=== PATIENT | male | born 1995 | race Caucasian/White ===

== ENCOUNTER 2016-09-26 09:51 | Emergency (ER) | payer OTHER ==
[2016-09-26 09:57] VITALS: BP 140/95
--- NOTE | 2016-09-26 11:04 | UC ---
Ear Complaint HPI - HPI Summary HPI Summary: ONSET OF LEFT EAR PAIN, DECREASED HEARING AND DRAINAGE YESTERDAY. NO FEVER. 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 WILL BE STARTING IT TODAY. - History of Current Complaint Chief Complaint: UCEar Stated Complaint: EAR PAIN Time Seen by Provider: 09/26/16 10:58 Hx Obtained From: Patient Onset/Duration: Sudden Onset, Lasting Hours, Still Present Severity Initially: Moderate Severity Currently: Moderate Pain Intensity: 10 - STATES 10/10 BUT SITTING IN EXAM ROOM IN NO DISTRESS Pain Scale Used: 0-10 Numeric Aggravating Factors: Nothing Alleviating Factors: Nothing Associated Signs/Symptoms: Positive: Discharge, Hearing Loss. Negative: Trauma to Ear - Allergies/Home Medications Allergies/Adverse Reactions: Allergies Allergy/AdvReac Type Severity Reaction Status Date / Time No Known Allergies Allergy Verified 02/19/16 13:37 PMH/Surg Hx/FS Hx/Imm Hx Previously Healthy: Yes Other History Of: Negative For: HIV, Hepatitis B, Hepatitis C, Anticoagulant Therapy - Surgical History Surgical History: Yes Surgery Procedure, Year, and Place: ganglion cyst removed right wrist - Family History Known Family History: Positive: Unknown, Hypertension, Diabetes, Other - Mother and her sister has Leiden Factor V. Patient hasn't been tested Negative: Cardiac Disease Family History: Grandfather has brain tumor. Grandmother has had CVA. - Social History Alcohol Use: Occasionally Substance Use Type: Marijuana Substance Use Comment - Amount & Last Used: about once a week Smoking Status (MU): Current Some Day Smoker Type: Cigarettes Amount Used/How Often: 1/2 ppd Length of Time of Smoking/Using Tobacco: 2 years Have You Smoked in the Last Year: Yes Review of Systems Constitutional: Negative ENT: Ear Ache Respiratory: Negative Cardiovascular: Negative Gastrointestinal: Negative All Other Systems Reviewed And Are Negative: Yes Physical Exam Triage Information Reviewed: Yes Appearance: Well-Appearing, No Pain Distress, Well-Nourished Vital Signs: Initial Vital Signs Temp 99 F 09/26/16 09:53 Pulse 87 09/26/16 09:53 Resp 17 09/26/16 09:53 BP 140/95 09/26/16 09:53 Pulse Ox 100 09/26/16 09:53 Vital Signs Reviewed: Yes Eyes: Positive: Conjunctiva Clear ENT: Positive: Hearing grossly normal, Pharynx normal, Other: - RIGHT TM NORMAL. LEFT TM WITH PURULENT FLUID AND BUBBLES BEHIND TM. LEFT EAC WITH DEBRIS AND MILDLY EDEMATOUS Neck: Positive: Supple, Nontender, No Lymphadenopathy Respiratory: Positive: No respiratory distress, No accessory muscle use Cardiovascular: Positive: Pulses Normal Abdomen Description: Positive: Soft Musculoskeletal: Positive: No Edema Neurological: Positive: Alert Psychological: Positive: Normal Response To Family, Age Appropriate Behavior Skin: Negative: rashes Ear Complaint Course/Dx - Differential Dx/Diagnosis Provider Diagnoses: LEFT SUPPURATIVE OTITIS MEDIA Discharge - Discharge Plan Condition: Stable Disposition: HOME Prescriptions: Ciproflox/Dexameth OTIC.SUSP* [Ciprodex Otic*] 4 drop LEFT EAR BID #1 bottle Patient Education Materials: Otitis Media (ED) Referrals: Elvi Beltre [Primary Care Provider] - If Needed Additional Instructions: THE AMOXICILLIN YOU ARE STARTING FOR LYME DISEASE SHOULD COVER YOUR MIDDLE EAR INFECTION. USE THE EAR DROPS WELL TO COVER FOR EXTERNAL EAR INFECTION. FOLLOW -UP WITH YOUR PCP IF YOU ARE NOT IMPROVING EXPECTED.
== END 2016-09-26 11:12 | disposition home or self-care (01) ==
LOC: UCEAST 09:51
DX: H66.42 Suppurative otitis media, unspecified, left ear (principal); A69.20 Lyme disease, unspecified; Z72.0 Tobacco use
CPT/HCPCS: 99211; G0463

== ENCOUNTER 2018-05-09 09:23 | Emergency (ER) | payer OTHER ==
--- OUTSIDE RECORDS SUMMARY | 2018-05-09 09:37 | XMS REPORT | Continuity of Care Document ---
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 Payers Date Identification Numbers Payment Provider Subscriber Effective: 2015 Policy Number: [id number] DO Not Use - [employer] Dick Damon Group Number: [id number] PayID: [id number] [place] [id number] Effective: 2014 Policy Number: Lifetime Benefit Dick Damon [id number] Solns Expires: 2015 PayID: [id number] [address] [address] [employer] [id number] Advance Directives Description No Information Available Problems Date Description Provider Status Onset: 10/06/2016 Heterozygous Factor V Leiden mutation Jaime Chu PA Active Note: [7-fold VT risk] Onset: 06/11/2014 Essential hypertension Almaz Avila MD Active Onset: 06/11/2014 Tobacco user Almaz Avila MD Active Onset: 08/09/2010 Depressive disorder Elvi Beltre, RN MS [facility] Active Onset: 06/08/2014 Gastroesophageal reflux disease Almaz Avila MD Active Onset: 09/29/2016 Lyme disease Jaime Chu PA Active Note: 12/2015, 08/2016 Family History Description No Information Available Social History Type Date Description Comments Sex Unknown Tobacco Use Start: Unknown Heavy tobacco smoker (more than 10 cigarettes/day) Smoking Status Reviewed: 05/04/18 Heavy tobacco smoker (more than 10 cigarettes/day) ETOH Use Denies alcohol use Tobacco Use Start: Unknown Heavy tobacco smoker (more than 10 cigarettes/day) Allergies, Adverse Reactions, Alerts Description No Known Drug Allergies Medications Medication Date Status Form Strength Qnty SIG Indications Ordering Provider Amoxicillin Active Tablets 875mg 84tabs 1 tab by A69.23 Macadam , 017 mouth twice Debi a day for MD Thomas 6weeks Naproxen Active Tablets 500mg 60tabs 1 by mouth A69.23 Macaramila, 017 twice a day Debi as needed MD Thomas Vitamin D Active Tablets 1000Unit 1 by mouth Efe Beltre every day Elvi Cooper RN MS [employer]EE REPRESENT[employer]IVE Citalopram Active Tablets 20mg 30tabs 1 tablet Macaramila, Hydrobromide 017 per oral Debi daily MD Thomas Amoxicillin Hx Tablets 500mg 63tabs One Tab By A69.20 Patt 015 - Mouth Three Elvi Allison, Times Daily RN [employer] REPRESENTATIVE 016 Till Gone X 21 Days For Lyme Treatment Naproxen Hx Tablets 500mg 60tabs 1 by mouth 724.9 Patt 015 - twice a day Elvi C, as needed RN [employer]EE REPRESENTATIVE 017 M54.5 Sick Note 10/16/2014 - Hx Amado should be Almaz Avila 10/25/2014 excused from work MD Radha from Oct 16 to 2014 inclusively No Active 10/12/2014 - Hx Unknown Medications 10/12/2014 Ibuprofen 10/12/2014 - Hx Tablets 600mg 90t one by mouth Almaz Avila 10/25/2014 abs every 8 hours as MD Radha needed with food Chantix Starting 10/12/2014 - Hx Tablets 0.5mg 1ta to start 1 week 305.1 Almaz Avila Month Jose 07/05/2015 X 11 bs before target MD Radha & 1 quit day; day mg X 1-3: 0.5mg qday; 42 day 4-7: 0.5mg bid; day 7+ 1mg twice a day for 11 weeks Chantix 10/12/2014 - Hx Tablets 1mg 1pa after the starter 305.1 Almaz Avila Continuing Month 07/05/2015 ck pack, continue 1 MD Radha Jose tab twice a day for 11 weeks. may extend tx for another 12 weeks. Diazepam 10/12/2014 - Hx Tablets 10mg 10t 1/2 to 1 qHS prn 724.9 Porfirio Avilag 04/02/2016 abs for muscle MD Radha relaxant Nexium 08/05/2014 - Hx Capsules DR 40mg 90c 1 by mouth every 530.81 Almaz Avila 10/12/2014 aps day free samples MD Radha Omeprazole 06/07/2014 - Hx Capsules DR 40mg 30c 1 by mouth every 530.81 Almaz Avila 08/05/2014 aps day MD Radha Erythromycin/Herbert 08/13/2012 - Hx Gel 5-3% 1un apply bid for 706.1 [place], zoyl Peroxide 08/05/2014 its acne( dispense Elvi Cooper, generic) RN MS [facility] Escitalopram 07/16/2012 - Hx Tablets 20mg 90t 1/2 po qd X 4-6 311 [place], Oxalate 08/05/2014 abs Days Then One Elvi Cooper, Daily RN MS [facility] Citalopram 10/30/2010 - Hx Tablets 40mg 90t take one tablet 311 [place], Hydrobromide 08/13/2012 abs by mouth qd ( Elvi Cooper, start w 1/2 tabx RN MS [facility] 4-6 days Medrol Dosepak 08/09/2010 - Hx Tablets 4mg 1Pa as dir [address] [place] [address], 08/21/2010 ck Debi Guzman MD School Note 08/09/2010 - Hx pl excuse from [address] [place] [address], 08/21/2010 classes Debi Guzman MD recent dx: mono Citalopram 03/27/2010 - Hx Tablets 20mg 90t 1 po qd 311 [place], Hydrobromide 10/30/2010 abs Elvi Cooper RN MS [employer]EE REPRESENTATIVE Erythromycin 03/27/2010 - Hx Gel 2% 60m apply hs to face 706.1 [employer], 08/13/2012 l May Use Up To bid Elvi Cooper RN MS [facility] Immunizations CPT Code Status Date Vaccine Lot # [id number] Given 05/04/2018 Influenza Vac, Quadrivalent, Split, 0.5mL Dosage, [id number] Im Use [id number] Given 01/17/2011 Fluzone Trivalent Immunization [id number] Vital Signs Date Vital Result Comment 05/04/2018 8:37am Weight 194.00 lb Heart Rate 89 /min BP Systolic 139 mmHg BP Diastolic 85 mmHg Height 71.5 inches 5'11.50" BMI (Body Mass Index) 26.7 kg/m2 09/25/2016 7:51am Weight 187.38 lb Heart Rate 99 /min BP Systolic 137 mmHg BP Diastolic 82 mmHg Height 71.5 inches 5'11.50" BMI (Body Mass Index) 25.8 kg/m2 04/02/2016 10:41am Weight 191.50 lb Heart Rate 95 /min BP Systolic 132 mmHg BP Diastolic 68 mmHg Height 71.5 inches 5'11.50" BMI (Body Mass Index) 26.3 kg/m2 07/05/2015 2:52pm Body Temperature 98.4 F Weight 190.38 lb Heart Rate 82 /min BP Systolic 123 mmHg BP Diastolic 85 mmHg Height 71.5 inches 5'11.50" BMI (Body Mass Index) 26.2 kg/m2 10/25/2014 9:40am Weight 179.38 lb Heart Rate 87 /min BP Systolic 125 mmHg BP Diastolic 78 mmHg Height 71.5 inches 5'11.50" BMI (Body Mass Index) 24.7 kg/m2 10/12/2014 3:07pm Weight 179.38 lb Heart Rate 103 /min BP Systolic 135 mmHg BP Diastolic 90 mmHg BP Systolic Recheck 132 mmHg BP Diastolic Recheck 88 mmHg Height 71.5 inches 5'11.50" BMI (Body Mass Index) 24.7 kg/m2 08/01/2014 3:08pm Weight 184.00 lb Heart Rate 69 /min BP Systolic 145 mmHg BP Diastolic 84 mmHg BP Systolic Recheck 143 mmHg BP Diastolic Recheck 84 mmHg BP Systolic Sitting 137 mmHg BP Diastolic Sitting 81 mmHg Height 71.5 inches 5'11.50" BMI (Body Mass Index) 25.3 kg/m2 06/07/2014 2:24pm Weight 191.00 lb Heart Rate 85 /min BP Systolic 150 mmHg L Arm BP Diastolic 84 mmHg L Arm BP Systolic Recheck 149 mmHg RIGHT arm BP Diastolic Recheck 85 mmHg RIGHT arm Height 71.5 inches 5'11.50" BMI (Body Mass Index) 26.3 kg/m2 08/13/2012 9:07am Weight 219.00 lb Heart Rate 81 /min BP Systolic 140 mmHg BP Diastolic 91 mmHg 07/16/2012 8:57am Weight 219.00 lb Heart Rate 76 /min BP Systolic 150 mmHg BP Diastolic 88 mmHg 01/17/2011 9:56am Weight 188.00 lb Weight Percentile 90th Heart Rate 80 /min BP Systolic 136 mmHg BP Diastolic 66 mmHg 10/30/2010 1:26pm Weight 185.00 lb Weight Percentile 90th Heart Rate 79 /min BP Systolic 147 mmHg BP Diastolic 79 mmHg 08/21/2010 10:25am Weight 174.00 lb Weight Percentile 84th Heart Rate 60 /min BP Systolic 122 mmHg BP Diastolic 76 mmHg 08/09/2010 11:26am Body Temperature 97.0 F Weight 178.00 lb Weight Percentile 87th Heart Rate 80 /min BP Systolic 118 mmHg BP Diastolic 78 mmHg 08/01/2010 9:32am Weight 182.00 lb Weight Percentile 89th Heart Rate 81 /min BP Systolic 133 mmHg BP Diastolic 72 mmHg 04/23/2010 3:29pm Body Temperature 98.7 F Weight 192.00 lb Weight Percentile 94th Heart Rate 85 /min BP Systolic 150 mmHg BP Diastolic 77 mmHg 03/27/2010 10:00am Weight 194.00 lb Weight Percentile 94th Heart Rate 93 /min BP Systolic 139 mmHg BP Diastolic 86 mmHg Height 73 inches 6'1" Height Percentile 92 % BMI (Body Mass Index) 25.6 kg/m2 Body Mass Index Percentile 88 % Results Test Date Facility Test Result H/L Range Note Laboratory test 05/04/2018 [facility] Anti-Streptolysn O <pending> finding -RL Arthritis Panel-[facility] 05/04/2018 [facility] Rheumatoid Factor <pending> Quant Esr-[facility] <pending> CRP,High Sensitivity <pending> Uric Acid-[facility] <pending> CBC With Auto Diff 09/25/2016 [facility] WBC 7.9 K/uL 4.1-11.0 RBC 5.49 M/uL 4.60-6.10 Hemoglobin 16.5 gm/dL 13.5-18.0 Hematocrit 48.9 % 41.0-53.0 MCV 89.1 fL 80.0-97.0 MCH 30.1 pg 27.0-32.0 MCHC 33.8 g/dL 32.0-36.0 RDW 13.1 % 11.5-14.5 PLT Count 182 K/ul 140-400 Neutrophil 57.4 % 35.0-75.0 Lymphocyte 31.0 % 16.0-52.0 Monocyte 7.9 % 2.0-10.0 Eosinophil 3.1 % 0.0-5.0 Basophil 0.6 % 0.0-4.0 Abs Neutrophils 4.5 K/uL 2.1-8.0 Abs Lymphocytes 2.5 K/uL 0.8-5.5 Abs Monocytes 0.6 K/uL 0.1-1.0 Abs Eosinophils 0.2 K/uL 0.0-0.5 Abs Basophils 0.0 K/uL 0.0-0.3 Z#Lyme Confirmation Abs Blood 09/25/2016 [facility] Lyme Igg B Terra Negative 1 Lyme Igm B Terra Positive 2 Factor 5 Leiden By PCR-RL 09/25/2016 [facility] Result SPEC. AND BILLIN <SEE 3, 4 NOTE> Performing Lab [facility] <SEE NOTE> 5 E Chaffeensis Abs 09/25/2016 [facility] E Chaffeensis Igg <1:64 6 E Chaffeensis Igm < 1:16 7 Babesia M AB Igg Igm -RL 09/25/2016 [facility] Babesia Microti Igg < 1:16 8 Babesia Microti Igm <1:20 9 Lyme Disease By PCR - RL 09/25/2016 [facility] Source SERUM Lyme PCR Not Detected 10 Lyme Igm/Igg AB -RL 09/25/2016 [facility] Lyme Igm/Igg AB @ POSITIVE (Neg) 11 CBC With Auto Diff 07/05/2015 [facility] WBC 8.2 K/uL 4.1-11.0 RBC 5.62 M/uL 4.60-6.10 Hemoglobin 16.9 gm/dL 13.5-18.0 Hematocrit 49.2 % 41.0-53.0 MCV 87.6 fL 80.0-97.0 MCH 30.0 pg 27.0-32.0 MCHC 34.3 g/dL 32.0-36.0 RDW 12.8 % 11.5-14.5 PLT Count 200 K/ul 140-400 Neutrophil 51.6 % 35.0-75.0 Lymphocyte 39.2 % 16.0-52.0 Monocyte 5.4 % 2.0-10.0 Eosinophil 3.4 % 0.0-5.0 Basophil 0.4 % 0.0-4.0 Abs Neutrophils 4.3 K/uL 2.1-8.0 Abs Lymphocytes 3.2 K/uL 0.8-5.5 Abs Monocytes 0.4 K/uL 0.1-1.0 Abs Eosinophils 0.3 K/uL 0.0-0.5 Abs Basophils 0.0 K/uL 0.0-0.3 Comprehensive Metabolic (CMP) 07/05/2015 [facility] Sodium 140 mmol/L 134- 142 Potassium 4.4 mmol/L 3.5-5.2 Chloride 105 mmol/L 97-109 Carbon Dioxide 29 mmol/L 24-34 Glucose 77 mg/dL 70-105 BUN 16 mg/dL 6-26 Creatinine 0.8 mg/dL 0.5-1.4 Calcium 9.6 mg/dL 8.5-10.2 Total Protein 7.2 g/dL 6.0-8.0 Albumin 4.7 g/dL 3.6-4.9 Globulin 2.5 g/dL 2.0-3.5 A/G Ratio 1.9 Ratio 1.0-2.2 Total Bilirubin 0.6 mg/dL 0.1-1.3 Alkaline Phosphatase 50 U/L 24-140 Alt 32 U/L 3-42 Ast 24 U/L 8-42 Anion Gap 10 mmol/L 6-14 Julia Egfr >60 >60 12 Non Julia Egfr >60 >60 13 Z#Lyme Confirmation Abs Blood 12/06/2014 [facility] Lyme Igg B Terra Negative 14 Lyme Igm B Terra Positive 15 Laboratory test finding 12/06/2014 [facility] Lyme Igm/Igg AB POSITIVE (Neg ) 16 CBC With Auto Diff 10/25/2014 [facility] WBC 7.1 K/uL 4.1-11.0 RBC 5.50 M/uL 4.60-6.10 Hemoglobin 16.6 gm/dL 13.5-18.0 Hematocrit 48.7 % 41.0-53.0 MCV 88.5 fL 80.0-97.0 MCH 30.1 pg 27.0-32.0 MCHC 34.0 g/dL 32.0-36.0 RDW 13.0 % 11.5-14.5 PLT Count 307 K/ul 140-400 Neutrophil 42.7 % 35.0-75.0 Lymphocyte 45.4 % 16.0-52.0 Monocyte 8.3 % 2.0-10.0 Eosinophil 2.9 % 0.0-5.0 Basophil 0.7 % 0.0-4.0 Abs Neutrophils 3.0 K/uL 2.1-8.0 Abs Lymphocytes 3.2 K/uL 0.8-5.5 Abmon 0.6 K/uL 0.1-1.0 Abs Eosinophils 0.2 K/uL 0.0-0.5 Abs Basophils 0.1 K/uL 0.0-0.3 Comprehensive Metabolic (CMP) 07/16/2012 [facility] Sodium 141 mmol/L 134- 142 17 Potassium 4.6 mmol/L 3.5-5.2 Chloride 107 mmol/L 97-109 Carbon Dioxide 30 mmol/L 24-34 Glucose 96 mg/dL 70-105 BUN 9 mg/dL 6-26 Creatinine 0.8 mg/dL 0.5-1.4 Calcium 9.4 mg/dL 8.5-10.2 Total Protein 6.9 g/dL 6.0-8.0 Albumin 4.5 g/dL 3.6-4.9 Globulin 2.4 g/dL 2.0-3.5 A/G Ratio 1.9 Ratio 1.0-2.2 Total Bilirubin 0.5 mg/dL 0.1-1.3 Alkaline Phosphatase 66 U/L 24-140 Alt 23 U/L 3-42 Ast 19 U/L 8-42 Anion Gap 9 mmol/L 6-14 Julia Egfr >60 >60 18 Non Julia Egfr >60 >60 19 Laboratory test finding 07/16/2012 [facility] Vit D,25 Hydroxy 25 ng/mL Low 31-100 Vitamin B12 289 pg/mL 180-914 TSH 1.27 uIU/mL 0.34-5.60 CBC With Auto Diff 08/21/2010 [facility] WBC 6.7 K/uL 4.1-11.0 RBC 5.12 M/uL 4.60-6.10 Hemoglobin 15.2 gm/dL 13.5-18.0 Hematocrit 44.6 % 41.0-53.0 MCV 87.1 fL 80.0-97.0 MCH 29.6 pg 27.0-32.0 MCHC 34.1 g/dL 32.0-36.0 RDW 13.2 % 11.5-14.5 PLT Count 222 K/ul 140-400 Neutrophil 41.7 % 35.0-75.0 Lymphocyte 48.5 % 16.0-52.0 Monocyte 8.4 % 2.0-10.0 Eosinophil 1.0 % 0.0-5.0 Basophil 0.4 % 0.0-4.0 Abs Neutrophils 2.8 K/uL 2.1-8.0 Abs Lymphocytes 3.3 K/uL 0.8-5.5 Abs Monocytes 0.6 K/uL 0.1-1.0 Abs Eosinophils 0.1 K/uL 0.0-0.5 Abs Basophils 0.0 K/uL 0.0-0.3 Comprehensive Metabolic (CMP) 08/21/2010 [facility] Sodium 139 mmol/L 135- 144 Potassium 3.6 mmol/L 3.6-5.2 Chloride 105 mmol/L 97-110 Carbon Dioxide 24 mmol/L 23-32 Glucose 76 mg/dL 70-105 BUN 10 mg/dL 6-22 Creatinine 0.8 mg/dL 0.5-1.3 Calcium 9.5 mg/dL 8.6-10.2 BUN/CR 13 ratio 12-20 Total Protein 7.4 g/dL 5.8-7.8 Albumin 4.2 g/dL 3.1-4.8 Globulin 3.2 g/dL 2.0-3.5 A/G Ratio 1.3 Ratio 1.0-2.2 Total Bilirubin 1.3 mg/dL High 0.3-1.2 Alkaline Phosphatase 79 U/L 24-140 Alt 36 U/L 5-45 Ast 25 U/L 12-40 Anion Gap 14 mmol/L 8-16 CBC With Auto Diff 08/09/2010 [facility] WBC 13.7 K/uL High 4.1-11.0 RBC 4.67 M/uL 4.60-6.10 Hemoglobin 13.9 gm/dL 13.5-18.0 Hematocrit 41.4 % 41.0-53.0 MCV 88.6 fL 80.0-97.0 MCH 29.8 pg 27.0-32.0 MCHC 33.6 g/dL 32.0-36.0 RDW 13.4 % 11.5-14.5 PLT Count 223 K/ul 140-400 Comprehensive Metabolic (CMP) 08/09/2010 [facility] Sodium 139 mmol/L (136- 145) Potassium 4.8 mmol/L (3.6-5.2) Chloride 102 mmol/L (100-108) Co2 27 mmol/L (22-31) Anion Gap 10 mmol/L (7-16) Urea Nitrogen 15 mg/dL (7-24) Creatinine 0.9 mg/dL (0.8-1.3) BUN/Creat Ratio 16.7 RATIO (10.0-20.0) Glucose 84 mg/dL (70-99) Calcium 9.4 mg/dL (8.4-10.2) Total Protein 7.6 g/dL (6.4-8.2) Albumin 4.2 g/dL (3.5-4.6) Globulin 3.4 g/dL (2.7-4.3) Alb/Glob Ratio 1.2 RATIO Alkaline Phosphatase 107 U/L (98-317) Bilirubin,Total 0.7 mg/dL (0.0-1.0) Ast (Sgot) 74 U/L High (11-39) Alt (SGPT) 160 U/L High (25-69) GFR NOT CALCULATED D <SEE NOTE> ML/MIN/1.73M2 (>59) 20 GFR ( Amer) NOT CALCULATED D <SEE NOTE> ML/MIN/1.73M2 (>59) 21 GFR Interpretation (SEE NOTE) 22 Ebv Evaluation 08/09/2010 [facility] Ebv Vca Igg @ NEGATIVE (Neg) Ebv Vca Igm @ POSITIVE (Neg) 23 Ebv Early Ag Igg @ POSITIVE (Neg) 24 Ebv Nuclear Ag Igg @ NEGATIVE (Neg) 25 Manual Differential 08/09/2010 [facility] Neutrophils 30 % Low 35-75 Lymphocytes 46 % 16-52 Atypical Lymphs 12 High 0-10 Monocytes 10 % 2-10 Eosinophils 1 % 0-5 Basophils 1 % 0-4 Platelet Estimate Normal Normal RBC Morphology Normal Normal 1 Negative Reference range: Negative Band(s) present: 41, 30, 23, 18 kDa (Insufficient number of bands for positive result) INTERPRETIVE INFORMATION: B. burgdorferi IgG Immunoblot For this assay, a positive result is reported when any 5 or more of the following 10 bands are present: 18, 23, 28, 30, 39, 41, 45, 58, 66, or 93 kDa. All other banding patterns are reported as negative. 2 Positive Reference range: Negative Band(s) present: 41, 23 kDa INTERPRETIVE INFORMATION: B. burgdorferi Antibody IgM Immunoblot For this assay, a positive result is reported when any 2 or more of the following bands are present: 23, 39, or 41 kDa. All other banding patterns are reported as negative. Performed by [facility], [address] [place] [address] www[employer], Christopher Funes MD, Lab. Director Unless otherwise specified, testing performed by [facility] [address] [place] [id number] 3 CONSENT SIGNED AND BAGGED WITH SPECIMEN 4 SPEC. AND BILLING INFORMATION FORWARDED TO [facility] SEE SEPARATE REPORT [address] [place] [address] Unless otherwise specified, testing performed by [facility] [address] [place] [id number] 6 <1:64 Reference range: <1:64 INTERPRETIVE INFORMATION: Ehrlichia Chaffeensis IgG Ab Less than 1:64 ....... Negative: No significant level of Ehrlichia chaffeensis IgG antibody detected. 1:64-1:128 ........... Equivocal: Questionable presence of Ehrlichia chaffeensis IgG antibody detected. Repeat testing in 10-14 days may be helpful. 1:256 or greater ..... Positive: Presence of IgG antibody to Ehrlichia chaffeensis detected, suggestive of current or past infection. Seroconversion between acute and convalescent sera is considered strong evidence of recent infection. The best evidence for infection is a significant change (fourfold difference in titer) on two appropriately timed specimens, where both tests are done in the same laboratory at the same time. Test developed and characteristics determined by [facility]. See Compliance Statement B: [facility] [employer] [facility]/CS 7 < 1:16 Reference range: < 1:16 INTERPRETIVE INFORMATION: Ehrlichia Chaffeensis IgM Ab Less than 1:16 ....... Negative - No significant level of Ehrlichia chaffeensis IgM antibody detected. 1:16 or greater ...... Positive - Presence of IgM antibody to Ehrlichia chaffeensis detected, suggestive of current or recent infection. While the presence of IgM antibodies suggest current or recent infection, low levels of IgM antibodies may occasionally persist for more than 12 months post-infection. A single IgM result should be interpreted with caution. Test developed and characteristics determined by [facility]. See Compliance Statement B: [facility]/CS Performed by [facility], [address] [place] [address] www[employer], Christopher Funes MD, Lab. Director Unless otherwise specified, testing performed by [facility] [address] [place] [phone] 8 < 1:16 Reference range: < 1:16 INTERPRETIVE INFORMATION: Babesia microti Antibody, IgG Less than 1:16 ........ Negative - No significant level of detectable Babesia IgG antibodies. 1:16 .................. Equivocal - Repeat testing in 10-14 days may be helpful. Greater than 1:16 ..... Positive - IgG antibodies to Babesia detected which may indicate a current or previous infection. Test developed and characteristics determined by [facility]. See Compliance Statement A: [facility]/CS 9 <1:20 Reference range: <1:20 INTERPRETIVE INFORMATION: Babesia microti Antibody, IgM Less than 1:20 ........ Negative - No significant level of detectable Babesia IgM antibodies. 1:20 .................. Equivocal - Repeat testing in 10-14 days may be helpful. Greater than 1:20 ..... Positive - IgM antibodies to Babesia detected which may indicate a current or recent infection. Test developed and characteristics determined by [facility]. See Compliance Statement A: [facility]/CS Performed by [facility], [address] [place] [address] www[employer], Christopher Funes MD, Lab. Director Unless otherwise specified, testing performed by [facility] [address] [place] [id number] 10 Not Detected NOT DETECTED - A negative result does not rule out the presence of PCR inhibitors in the patient specimen or assay specific nucleic acid in concentrations below the level of detection by the assay. The [facility] considers blood and urine samples to be suboptimal for the detection for Borrelia by PCR. Positive results do not necessarily represent active disease. INTERPRETIVE INFORMATION: Borrelia Species DNA Detection by PCR Test developed and characteristics determined by [facility]. See Compliance Statement B: [facility]/CS Performed by [facility], [address] [place] [address] www[employer], Christopher Funes MD, Lab. Director Unless otherwise specified, testing performed by [facility] [address] [place] [phone] 11 SPECIMENS TESTING POSITIVE OR EQUIVOCAL FOR LYME IGG/IGM MAY BE DUE TO LYME DISEASE OR A VARIETY OF OTHER CLINICAL CONDITIONS. THEREFORE, THESE SPECIMENS ARE REFERRED TO A REFERENCE LABORATORY FOR WESTERN IMMUNOBLOT TESTING. PLEASE REFER TO THE REFERENCE LABORATORY SECTION OF THE REPORT FOR THESE RESULTS. Unless otherwise specified, testing performed by [facility] [address] [place] [id number] 12 Concerning GFR Guidelines for Americans: Normal function or mild renal disease, if clinically at risk: >/=60 mL/min Moderately decreased: 30-59 Severely decreased: 15-29 Renal failure: <15 13 Concerning GFR Guidelines: Normal function or mild renal disease, if clinically at risk: >/=60 mL/min Moderately decreased: 30-59 Severely decreased: 15-29 Renal failure: <15 Glomerular Filtration Rate (GFR) is estimated based on the MDRD equation, which assumes a steady state for creatinine as recommended by the National Kidney Disease Education Program in conjunction with the National Institutes of Health and the National Kidney Foundation. Clinical conditions in which it may be necessary to measure GFR by using clearance methods include extremes of age and body size, severe malnutrition or obesity, diseases of skeletal muscle, paraplegia or quadriplegia, vegetarian diet, rapidly changing kidney function, and calculation of the dose of potentially toxic drugs that are excreted by the kidneys. 14 Negative Reference range: Negative Band(s) present: 41, 39, 23 kDa (Insufficient number of bands for positive result) INTERPRETIVE INFORMATION: Borrelia Burgdorferi Ab, IgG Western Blot For this assay, a positive result is reported when any 5 or more of the following 10 bands are present: 18, 23, 28, 30, 39, 41, 45, 58, 66, or 93 kDa. All other banding patterns are reported as negative. 15 Positive Reference range: Negative Band(s) present: 41, 23 kDa INTERPRETIVE INFORMATION: Borrelia Burgdorferi Antibody, IgM Western Blot For this assay, a positive result is reported when any 2 or more of the following bands are present: 23, 39, or 41 kDa. All other banding patterns are reported as negative. Performed by [facility], [address] [place] [id number] www[employer], Joel Tena MD, Lab. Director Unless otherwise specified, testing performed by [facility] [address] [place] [phone] 16 SPECIMENS TESTING POSITIVE OR EQUIVOCAL FOR LYME IGG/IGM MAY BE DUE TO LYME DISEASE OR A VARIETY OF OTHER CLINICAL CONDITIONS. THEREFORE, THESE SPECIMENS ARE REFERRED TO A REFERENCE LABORATORY FOR WESTERN IMMUNOBLOT TESTING. PLEASE REFER TO THE REFERENCE LABORATORY SECTION OF THE REPORT FOR THESE RESULTS. Unless otherwise specified, testing performed by [facility] [address] [place] [phone] 17 This sample is drawn by:[facility]. 18 Concerning GFR Guidelines for Americans: Normal function or mild renal disease, if clinically at risk: >/=60 mL/min Moderately decreased: 30-59 Severely decreased: 15-29 Renal failure: <15 19 Concerning GFR Guidelines: Normal function or mild renal disease, if clinically at risk: >/=60 mL/min Moderately decreased: 30-59 Severely decreased: 15-29 Renal failure: <15 Glomerular Filtration Rate (GFR) is estimated based on the MDRD equation, which assumes a steady state for creatinine as recommended by the National Kidney Disease Education Program in conjunction with the National Institutes of Health and the National Kidney Foundation. Clinical conditions in which it may be necessary to measure GFR by using clearance methods include extremes of age and body size, severe malnutrition or obesity, diseases of skeletal muscle, paraplegia or quadriplegia, vegetarian diet, rapidly changing kidney function, and calculation of the dose of potentially toxic drugs that are excreted by the kidneys. 20 NOT CALCULATED DUE TO AGE LESS THAN 20 YEARS 21 NOT CALCULATED DUE TO AGE LESS THAN 20 YEARS 22 NORMAL KIDNEY FUNCTION OR MILD DISEASE - GFR >OR=60 CHRONIC KIDNEY DISEASE - GFR 15 - 59 RENAL FAILURE - GFR <15 Est. GFR calculation based on the MDRD study equation, which assumes a steady state for creatinine. Est. GFR should not be used for medication dosing. Unless otherwise specified, testing performed by [facility] [place] [address] 23 May indicate a current or recent infection. 24 May indicate a current or previous infection. 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 Z82.79 Fam hx of congen malform, deformations and chromsoml abnlt Office Visit 04/02/2016 10:40a Little Martinez PA F41.1 Generalized anxiety disorder Z63.79 Other stressful life events affecting family and household Z72.4 Inappropriate diet and eating habits Z72.821 Inadequate sleep hygiene I10 Essential (primary) hypertension Office Visit 07/05/2015 2:40p Elvi Gonzalez RN MS 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 B34.8 Other viral infections of unspecified site Office Visit 10/25/2014 9:40a Elvi Gonzalez, 724.9 Back Disorders Other RN MS EMPLOYEE REPRESENTATIVE Unspec 079.89 Viral Infection Spec Other Office Visit 10/12/2014 2:40p Almaz Daily MD 724.9 Back Disorders Other Unspec 305.1 Tobacco Use Disorder Office Visit 08/01/2014 2:40p Almaz Daily MD 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 Disorder Not Elsewhere Spec 530.81 Esophageal Reflux 401.9 Hypertension Unspec 305.1 Tobacco Use Disorder 300.02 Anxiety Disorder Generalized Office Visit 06/07/2014 2:20p Almaz Daily MD 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 Disorder Not Elsewhere Spec 530.81 Esophageal Reflux 401.9 Hypertension Unspec 305.1 Tobacco Use Disorder 724.2 Lumbago 719.45 Pain Joint Pelvic Region & Thigh 078.10 Viral Warts Unspec Office Visit 08/13/2012 9:00a Elvi Gonzalez, 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 Disorder 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 706.1 Acne Other 350.2 Face Pain Atypical Office Visit 07/16/2012 8:40a Elvi Gonzalez, 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 Disorder 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 296.99 Episodic Mood Disorder NEC 790.6 Abnormal Blood Chemistry Other Office Visit 01/17/2011 9:20a Elvi Gonzalez, RN MS 727.43 Ganglion Unspec EMPLOYEE REPRESENTATIVE V04.81 Need For Prophylactic Vaccination & Inoculation/Influenza Office Visit 10/30/2010 1:00p Elvi Gonzalez, 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 Disorder 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 075 Mononucleosis Infectious Office Visit 08/21/2010 9:30a Debi Mederos 075 Mononucleosis Infectious MD Thomas 794.8 Liver Study Abnormal Office Visit 08/09/2010 11:15a Debi Mederos 075 Mononucleosis Infectious MD Thomas Office Visit 08/01/2010 9:40a Elvi Gonzalez, 075 Mononucleosis Infectious RN MS EMPLOYEE REPRESENTATIVE Office Visit 04/23/2010 3:00p Elvi Gonzalez, 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 Disorder 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 pt had n/v with doxy last fall. need 4weeks s/s free on tx. test for other tick borne infections. will also test for strep Ab and mono.Follow up:f/u [id number] Other viral infections of unspecified siteComments:eval ? [id number] Nicotine dependence, cigarettes, uncomplicatedComments:?want to quit. smoking about 1-1.5pk per day. depends on work. ~7min convo. ? Rx.Z68.26 Body mass index (BMI) 26.0-26.9, adult
--- NOTE | 2018-05-09 09:48 | ED ---
Adult Trauma - HPI Summary HPI Summary: Pt. is a 23 y.o male who presents to the ER for evaluation after a fall. Pt. states he was walking from second floor apt. to first floor when a step broke and he fell through and fell roughly 10 feet to next floor. Pt. denies striking his head or LOC. Pt.'s only complaint is pain to left ribcage. He denies headache, neck pain, SOB, CP, abd. pain, numbness, tingling or bruising. Pt. states he was able to get up off floor and has been ambulatory since. Sxs are moderate in severity. Movement and deep inspiration makes sxs worse. Nothing makes sxs better. 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 No significant past medical hx. - History of Current Complaint Chief Complaint: EDChestWallPain Stated Complaint: "I fell through a set of stairs." per pt Time Seen by Provider: 05/09/18 09:31 Hx Obtained From: Patient Pain Intensity: 9 - Allergy/Home Medications Allergies/Adverse Reactions: Allergies Allergy/AdvReac Type Severity Reaction Status Date / Time No Known Allergies Allergy Verified 05/09/18 09:29 PMH/Surg Hx/FS Hx/Imm Hx Previously Healthy: Yes Endocrine/Hematology History: Denies: Hx Anticoagulant Therapy, Hx Diabetes, Hx Thyroid Disease Cardiovascular History: Denies: Hx Congestive Heart Failure, Hx Deep Vein Thrombosis, Hx Hypertension , Hx Myocardial Infarction, Hx Pacemaker/ICD Respiratory History: Denies: Hx Asthma, Hx Chronic Obstructive Pulmonary Disease (COPD), Hx Lung Cancer, Hx Pneumonia, Hx Pulmonary Embolism GI History: Denies: Hx Gall Bladder Disease, Hx Gastrointestinal Bleed, Hx Ulcer, Hx Urosepsis History: Denies: Hx Kidney Stones, Hx Renal Disease Neurological History: Denies: Hx Dementia, Hx Migraine, Hx Seizures, Hx Transient Ischemic Attacks (TIA) Psychiatric History: Reports: Hx Depression - No formal dx or Rx. Denies: Hx Anxiety, Hx Eating Disorder, Hx Schizophrenia, Hx Bipolar Disorder , Hx of Violent Episodes Against Others - Surgical History Surgery Procedure, Year, and Place: ganglion cyst removed right wrist Infectious Disease History: No Infectious Disease History: Denies: Hx Clostridium Difficile, Hx Hepatitis, Hx Human Immunodeficiency Virus (HIV), Hx of Known/Suspected MRSA, Hx Shingles, Hx Tuberculosis, Hx Known/ Suspected VRE, Hx Known/Suspected VRSA, History Other Infectious Disease, Traveled Outside the [place] in Last 30 Days - Family History Known Family History: Positive: Unknown, Hypertension, Diabetes, Other - Mother and her sister has Leiden Factor V. Patient hasn't been tested Negative: Cardiac Disease Family History: Grandfather has brain tumor. Grandmother has had CVA. - Social History Occupation: Employed Full-time Lives: With Family Alcohol Use: Occasionally Substance Use Type: Reports: Marijuana Substance Use Comment - Amount & Last Used: about once a week Smoking Status (MU): Heavy Every Day Tobacco Smoker Type: Cigarettes Amount Used/How Often: 1/2 ppd Length of Time of Smoking/Using Tobacco: 2 years Have You Smoked in the Last Year: Yes Review of Systems Eyes: Negative Cardiovascular: Negative Negative: Palpitations, Chest Pain Respiratory: Negative Negative: Shortness Of Breath Gastrointestinal: Negative Negative: Abdominal Pain Negative: hematuria Positive: Other - left sided rib pain Positive: Bruising - abrasion to left chest wall Negative: Headache, Weakness, Paresthesia, Numbness, Syncope, Slurred Speech All Other Systems Reviewed And Are Negative: Yes Physical Exam Triage Information Reviewed: Yes Vital Signs On Initial Exam: Initial Vitals Temp Pulse Resp BP Pulse Ox 98.4 F 84 18 139/92 100 05/09/18 09:24 05/09/18 09:24 05/09/18 09:24 05/09/18 09:24 05/09/18 09:24 Vital Signs Reviewed: Yes Appearance: Positive: Well-Appearing - Pt. sitting up in bed in NAD. Family member present. Skin: Positive: Warm, Dry Head/Face: Positive: Normal Head/Face Inspection Eyes: Positive: Normal, EOMI, BI Neck: Positive: Supple, Nontender - No midline tenderness Respiratory/Lung Sounds: Positive: Clear to Auscultation, Breath Sounds Present Cardiovascular: Positive: Normal, RRR Abdomen Description: Positive: Nontender, Soft Musculoskeletal: Positive: Other - Moving all 4 extremities without pain. Abrasions and pain noted over left lower lateral chest wall. No midline vertebral tenderness. Neurological: Positive: Normal, Alert, Oriented to Person Place, Time, CN Intact II-III Psychiatric: Positive: Affect/Mood Appropriate Diagnostics - Vital Signs Vital Signs Temp Pulse Resp BP Pulse Ox 05/09/18 09:24 98.4 F 84 18 139/92 100 - Laboratory Result Diagrams: 05/09/18:55 05/09/18 10:55 Lab Statement: Any lab studies that have been ordered have been reviewed, and results considered in the medical decision making process. Adult Trauma Course/Dx - Course Course Of Treatment: Pt. presenting for left sided chest wall injury after falling roughly 10 ft. Pt. ambulatory. O2 saturation is 100% on RA which is normal. VS stable. Pt. has no other signs on trauma on exam. Rib/CXR shows a left pneumothorax 25% without definite rib fx, no mediastinal shift. 1049: I spoke with oncall surgery, Dr. Avila, who does not recommend chest tube at this time but would like pt. admitted to hospitalist for observation. Case discussed with Dr. Dale, hospitalist, who saw pt. in the ER but recommends transfer to trauma center. Dr. Dale spoke with apollo Curran, who agrees with transfer to a trauma center given significant injury. 1150: I spoke with ER attending at [facility], Dr. Falcon, who accepts pt. to the ER. I also spoke with trauma surgeon, Dr. Alexander, who recommends chest tube placement prior to transfer. Dr. Avila agrees to place tube. ECG done at 0954 shows a sinus rhythm of 77bpm, normal axis, short IN interval. Labs unremarkable other than leukocytosis. 1218: Dr. Avila in room examing pt. Pending tube placement by Dr. Avila and transport to [place]. - Diagnoses Differential Diagnosis/HQI/PQRI: Positive: Abrasion(s), Contusion(s), Fracture, Dislocation, Hematoma(s) Provider Diagnoses: Pneumothorax, acute - Physician Notifications Reason For Transfer: Specialty [place] service not available [place] [facility] [place] Critical Care Time Critical Care Time: 30-74 min - 45 minutes including direct pt. care and consultation. Excludes billable procedures. Discharge - Sign-Out/Discharge Documenting (check all that apply): Patient Departure Patient Received Moderate/Deep Sedation with Procedure: No - Discharge Plan Condition: Stable Disposition: TRANS HIGHER LVL OF CARE FAC Referrals: Elvi Beltre [Primary Care Provider] - - Billing Disposition and Condition Condition: STABLE Disposition: Trans Higher Lvl of Care Fac
[2018-05-09] MEDS ORDERED: Acetaminophen TAB* 325 MG PO PRN (10:53)
[2018-05-09] MEDS ORDERED: oxyCODONE/Acetamin 5/325 MG* TAB PO PRN (10:53)
[2018-05-09 11:03] LABS: ABS Basophils 0 10^3/ul (0-0.2); ABS Eosinophils 0.2 10^3/ul (0-0.6); ABS Lymphocytes 2.1 10^3/ul (1.0-4.8); ABS Monocytes 0.9 10^3/ul (0-0.8); ABS Neutrophils 9.4 10^3/ul (1.5-7.7); ABS Nucleated RBC 0 10^3/ul; Eosinophil % 1.5 %; Hematocrit 47 % (42-52); Hemoglobin 15.8 g/dl (14.0-18.0); Lymphocyte % 16.4 %; Mean Corpuscular HGB Conc 34 g/dl (31-36); Mean Corpuscular Hemoglobin 30 pg (27-31); Mean Corpuscular Volume 90 fL (80-94); Mean Platelet Volume 7.5 fL (7.4-10.4); Nucleated Red Blood Cells % 0; Platelet Count 210 10^3/ul (150-450); Red Cell Distribution Width 14 % (10.5-15); White Blood Count 12.6 10^3/ul (3.5-10.8)
[2018-05-09 11:12] LABS: Activated Partial Thrombo Time 28.5 seconds (26.0-36.3); INR 0.99 (0.77-1.02)
[2018-05-09 11:20] LABS: Albumin 4.5 g/dL (3.2-5.2); Albumin/Globulin Ratio 1.9 (1-3); Calcium 9.5 mg/dL (8.6-10.3); EGFR African American 121.3 (>60); EGFR Non-African American 100.2 (>60); Globulin 2.4 g/dL (2-4); Potassium 3.8 mmol/L (3.5-5.0); Total Bilirubin 0.8 mg/dL (0.2-1.0); Total Protein 6.9 g/dL (6.4-8.9)
[2018-05-09 13:35] VITALS: BP 144/94
--- NOTE | 2018-05-09 14:39 | CONS ---
CC: Dr. Debi Malcolm in [place]; Dr. Avila of General Surgery MEDICINE CONSULTATION: DATE OF CONSULT: 05/09/18 REQUESTING PHYSICIAN: Dr. Bergeron in the ER at [facility]. REASON FOR CONSULTATION: Left-sided chest pain. HISTORY OF PRESENT ILLNESS: Mr. Damon is a 23-year-old man with no significant medical history, who presents to the emergency room here after a fall through the stairs at his apartment. He states that this morning he came out of his second-story apartment and stepped on the upper step of stairs to descend to the ground, fell through the step and struck his chest on another step that did not break. The whole upper portion of the stairway collapsed and he fell approximately 10-feet to the ground. He denies hitting his head. He states he landed on his buttocks without any injury on level ground. The patient had immediate pain in his left anterior chest. Denies any significant shortness of breath, dizziness, headache, back pain, leg pain. PAST MEDICAL HISTORY: He reports he has chronic Lyme disease and was started on antibiotics recently for this. He does not remember the name of the antibiotic. He also started on a nonsteroidal medication for this, which he does not remember the name. Medical history otherwise negative. PAST SURGICAL HISTORY: None. ALLERGIES: No allergies to medications. FAMILY HISTORY: His father had hypertension. His mother is alive, unknown health problems. He has 1 sibling, who is healthy. 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 He has no children. He is single. He does not smoke. He uses alcohol occasionally. He never had recreational drugs. REVIEW SYSTEMS: The patient denies any headache, double vision, stridor. The patient denies any thyroid problems. The patient denies any dyspnea. He does have pain in his chest with breathing. He has no heart disease history. Denies any palpitations. Denies any abdominal pain, nausea, vomiting, diarrhea , constipation. Remainder of 14-point review of systems was negative other than mentioned in HPI. PHYSICAL EXAMINATION: His temperature is 36.9, pulse is 84, respirations are 18 , blood pressure is 139/92, O2 sat is 100% on room air. In general, he is a well- appearing young man, in no acute distress. Head is normocephalic, atraumatic. Sclerae anicteric. Pupils equal, round, reactive to light and accommodation. Oropharynx is moist. No lesions. Neck: No JVD. Thyroid is normal. The trachea is midline. There is no cervical or axillary adenopathy. Lungs: Diminished on the left and normal on the right. He is tender in the anterior axillary line around the eighth rib. There is no crepitus. Abdomen is soft, nontender. Positive bowel sounds. No hepatosplenomegaly. Extremities : No peripheral edema. Dorsalis pedis pulses are 2+. Musculoskeletal Exam: His range of motion is normal on all major joints. Skin: There is no wound. There is no bruising. DIAGNOSTIC STUDIES AND LABORATORY DATA: White count 12.6, hemoglobin 15.8, hematocrit 47%, platelets are 210. INR is 0.99, PTT 28.5. Sodium 140, potassium 3.8, chloride 108, bicarb is 27. BUN 11, creatinine 0.92. Glucose 93. Liver enzymes are normal. Troponin 0.00. X-rays, chest x-ray shows a 25% apical pneumothorax on the left. Rib films and other chest x-ray do not demonstrate any rib fractures. There is no air under the diaphragm. EKG shows normal sinus rhythm, normal axis, shortened [place] interval, normal QT interval, no ischemia. ASSESSMENT AND RECOMMENDATIONS: Mr. Damon is a 23-year-old man who sustained a significant fall and traumatic pneumothorax. For the pneumothorax, the patient only needs to be observed in a hospital and have repeat chest x-ray in 4 hours and maybe another chest x-ray in 8 to 12 hours and in the morning. He may need a Heimlich valve or chest tube inserted depending on progression of pneumothorax. Hypo oxygen would be indicated to reduce the relative pressure of nitrogen in the thorax space. The patient's possible complications of the fall would include pulmonary contusion, splenic laceration. I do not feel this patient can be cared for at this hospital. We do not have a trauma surgery service. I discussed the case with Dr. Bergeron as well as Dr. Avila, our general surgeon. A decision has been made to transfer the patient to [facility] in [place], [place], which is appropriate trauma center for this patient. [id number]/[facility] #: [id number] [facility]
--- NOTE | 2018-05-09 21:53 | PRO ---
DATE OF PROCEDURE: 05/09/18 - EMERGENCY DEPT ADMITTING SERVICE: General surgery. ATTENDING SURGEON: Dr. Nery Avila. PRE-PROCEDURE DIAGNOSIS: Left pneumothorax. POST-PROCEDURE DIAGNOSIS: Left pneumothorax. PROCEDURE: Placement of left chest Heimlich chest tube. INDICATIONS FOR PROCEDURE: Mr. Damon is a 23-year-old gentleman who had a fall through a set of stairs from the second floor onto the first floor floor and suffered a left pneumothorax. He was going to be transferred to a trauma center for further evaluation; however, the trauma team recommended placement of a left chest tube prior to transportation. He had a left pneumothorax that accounted for approximately 25% of his lung volume; however, he was satting 100 % on room air and was not short of breath. He gave informed consent for placement of a left chest tube and understood the risks, benefits and alternatives. DESCRIPTION OF PROCEDURE: The patient's left anterior chest was prepped and draped in a normal sterile fashion. Prior to beginning the procedure, a time- out was performed, verifying the patient's name, date of , and the procedure as well as the laterality; which was the left side. The second intercostal space at the midclavicular line was palpated and the skin on the subcutaneous tissue was anesthetized using 1% lidocaine. Next, a finder needle was then placed into the second intercostal space and air was aspirated at this location. Once this was confirmed, the 8-[place] Heimlich valve was advanced using a needle into the second intercostal space while aspirating air into a syringe. Once the space was entered, the catheter was advanced over the needle and the needle itself was removed and then the catheter was connected to the Pleur-evac container and to suction. The patient tolerated this procedure well and the catheter was then secured to the skin at the chest wall using a silk suture. Dressing was placed. At the end of the procedure, a chest x-ray was performed that showed complete resolution of the left pneumothorax post Heimlich valve chest tube placement and that there were no rib fractures visualized. [id number]/[facility] #: [id number] [facility]TDD
== END 2018-05-09 13:34 | disposition short-term general hospital (02) ==
LOC: ED 09:23
DX: S27.0XXA Traumatic pneumothorax, initial encounter (principal); F17.210 Nicotine dependence, cigarettes, uncomplicated; A69.20 Lyme disease, unspecified; W10.9XXA Fall (on) (from) unspecified stairs and steps, initial encounter; Y92.009 Unspecified place in unspecified non-institutional (private) residence as the place of occurrence of the external cause
CPT/HCPCS: 36415; 71045; 80053; 84484; 85025; 85610; 85730; 93005; 99285; A9270-GY